=== PATIENT | male | born 1980 | race Caucasian/White ===

== ENCOUNTER 2021-07-12 09:26 | Inpatient (IN) | payer MEDICARE, MEDICAID, SELFPAY ==
[2021-07-12] VITALS (8 sets, daily range): BP systolic 121–147; BP diastolic 57–79; PULSE 76–95; RESP 16–20; TEMP 36.6–37.4; O2SAT 88–94; BMI 38.6; BMI 39.3
--- NOTE | ~2021-07-12 | CT_ITS ---
EXAMINATION: CT ANGIOGRAM OF THE CHEST WITH AND WITHOUT CONTRAST (CT PULMONARY ANGIOGRAM FOR PE) CLINICAL INFORMATION: Reason for Exam COVID +, hypoxia, sob, r/o pe COMPARISON: None TECHNIQUE: Prior to contrast administration, noncontrast localization images were obtained. Subsequently, multidetector volumetric imaging was performed from the thoracic inlet to below the diaphragms following the administration of 65 mL Omnipaque 350 intravenous contrast. No contrast reaction reported Sagittal, coronal, and MIP oblique sagittal reformatted images were obtained on the CT workstation, uploaded to PACS, and reviewed. This CT examination was performed using dose optimization techniques as appropriate, variously including the following: *Automated exposure control *Adjustment of mA and/or kV according to patient size (this includes techniques or standardized protocols for targeted exams where dose is matched to indication/reason for exam; i.e. extremities or head) *Use of iterative reconstruction technique Total exam dose-length product 519 mGy-cm FINDINGS: QUALITY OF STUDY/CONTRAST BOLUS: Satisfactory. PULMONARY ARTERIES: No central or segmental pulmonary emboli. THORACIC AORTA: No aneurysm or dissection. LUNG: The lung volumes are low. There is scattered areas of bilateral groundglass attenuation and increased interstitial markings seen throughout the lungs. This is a nonspecific appearance but would be compatible with Covid infection. PLEURA: No pleural effusion or pneumothorax. MEDIASTINUM: The heart is enlarged. No pericardial effusion. No hilar or mediastinal lymphadenopathy. No evidence of septal bowing or right heart strain. CHEST WALL/AXILLA: No axillary or internal mammary lymphadenopathy. OSSEOUS STRUCTURES: No acute or suspicious osseous abnormality. There are degenerative changes of the spine. UPPER ABDOMEN: Unremarkable. No reflux of contrast into the hepatic veins to suggest elevated right heart pressures. CT/CT angio chest PE protocol IMPRESSION: No evidence of pulmonary embolism. Bilateral infiltrates compatible with Covid infection. Enlarged heart. VTE: negative
--- NOTE | 2021-07-12 10:38 | ECG_ITS ---
Test Reason : DYSPNEA Blood Pressure : / mmHG Vent. Rate : 089 BPM Atrial Rate : 089 BPM P-R Int : 148 ms QRS Dur : 106 ms QT Int : 356 ms P-R-T Axes : 012 -16 024 degrees QTc Int : 433 ms Normal sinus rhythm Normal ECG No previous ECGs available Referred By: Kimmy Verduzco Electronically Signed By:JESI PIERRE
--- NOTE | 2021-07-12 10:47 | ED_ITS ---
HPI - SOB/Dyspnea General Chief Complaint: Dyspnea Stated Complaint: Cough fever Time Seen by Provider: 07/12/21 09:59 Source: patient Mode of arrival: ambulatory Limitations: no limitations History of Present Illness HPI Narrative: 40-year-old male with past medical history of HTN, obesity here from urgent care with complaints of cough, shortness of breath and fever up to 103 at home. Patient sought care in urgent care today and was noted to have oxygen saturations of 92-93% and was referred into the emergency department for further evaluation. Patient tells me that he started to have symptoms of COVID on July 03. Both of his family members at home are positive on July 06 he was tested and found out he was positive. He has been resting at home taking Motrin for fever. He tells me his fever does respond to Motrin but returns when the Motrin wears off. His last fever was this morning. He denies any chest pain or leg pain or swelling. The patient is not vaccinated for COVID Related Data Home Medications Medication Instructions Recorded Confirmed amlodipine 2.5 mg tablet 1 tab PO DAILY 07/12/21 clonazepam 0.5 mg tablet mg PO 07/12/21 lamotrigine 200 mg tablet 1 tab PO BID 07/12/21 paroxetine HCl 40 mg tablet 1 tab PO DAILY 07/12/21 Allergies Allergy/AdvReac Type Severity Reaction Status Date / Time No Known Allergies Allergy Verified 07/12/21 10:16 Review of Systems Review of Systems: Yes all other systems are reviewed and are negative Constitutional: Constitutional: Reports no additional constitutional complaints, Denies body ache(s), Denies chills, Reports fever(s), Denies headache(s) and Denies weakness Eyes: Eyes: Reports no additional eye complaints and Denies change in vision ENT: Reports system reviewed and no additional complaints, except as documented, Denies dizziness, Denies headache(s), Denies nasal congestion, Denies nasal discharge and Denies neck pain Cardiovascular: Cardiovascular: Reports no additional cardiovascular complaints, Denies chest pain, Denies leg edema and Reports dyspnea Respiratory: Respiratory: Reports no additional respiratory complaints, Reports cough and Reports dyspnea Gastrointestinal: Gastrointestinal: Reports no additional gastrointestinal complaints, Denies abdominal pain, Denies diarrhea, Denies nausea and Denies vomiting Musculoskeletal: Musculoskeletal: Reports no additional musculoskeletal complaints, Denies back pain, Denies arthralgias, Denies joint swelling, Denies neck pain, Denies numbness and Denies tingling Integumentary/Breasts: Skin/Breast: Reports system reviewed and no additional complaints, except as docu and Denies rash Neurologic: Reports system reviewed and no additional complaints, except as documented, Denies Abnormal speech present, Denies dizziness, Denies head ache(s), Denies numbness, Denies tingling and Denies weakness PMFSH Past Medical History Attestation statement: The following information was validated with the patient. Source: old records reviewed and nursing notes reviewed Medical History Anxiety HTN (hypertension) Tonsillectomy planned Social History Social History Alcohol intake: former Patient Tobacco Use Status: Former Tobacco user Use of substances other than those prescribed or required for medical reasons: No Advance Directives: No Advance Directives Information Provided: No Physical Exam Vital Signs: Vital Signs: Last Vital Signs Temp 99.4 F 07/12/21 14:04 Pulse 89 07/12/21 14:04 Resp 19 07/12/21 14:04 BP 139/79 07/12/21 14:04 Pulse Ox 92 07/12/21 14:04 Body Mass Index 38.6 Const: General: cooperative, healthy appearing, comfortable and no acute distress Orientation/consciousness: patient oriented x3 Limitations: no limitations HENMT: Head: Yes normal to inspection Ears: hearing grossly normal bi laterally General nose exam: Normal external nose present Face and sinus: Yes normal facial exam Mouth: Normal oral and palatal mucosa present Throat: Yes posterior oropharynx normal Eyes: General: appearance normal, both eyes and all related structures Pupils: Equal, round and reactive pupils present Neck: Neck: Yes normal visual inspection Chest: Chest palpation & inspection: normal inspection of the chest Resp: Other: Mild expiratory wheezing throughout Effort & Inspection: normal respiratory effort Cardio: Rate: regular rate Rhythm: regular rhythm Peripheral pulses: Peripheral pulses 2+ throughout GI: Inspection: Yes normal to inspection Palpation (GI): Soft to palpation and nontender Auscultation: normal bowel sounds Back/Spine/Pelvis: Thoracic/Lumbar Spine: thoracic and lumbar spine normal to inspection Skin: General skin exam: no rashes or lesions noted Neuro: General: patient oriented x3, no focal motor deficits and normal sensation to monofilament Cranial nerves: Yes Equal, round and reactive pupils present Cognition (Neuro): normal cognition Speech: No Abnormal speech present Gait exam (Neuro): Normal gait present Motor exam (neuro): 5/5 motor strength present throughout Extrem: General: Yes normal to inspection, Yes no pedal edema and Yes no calf tenderness Course Course Course Narrative: 40-year-old male known COVID positive here with complaints of continued fevers, cough, shortness of breath. Found to have oxygen saturation 92% at urgent care and referred into the emergency department today. On arrival the patient does have room air saturation 92%. He has mild tachypnea with talking. He has mild expiratory wheezing throughout. No calf pain or swelling. Will check labs, EKG, CTA. Will give decadron IV. Tachypnea, hypoxia from a viral infection. 1357-CT shows IMPRESSION: No evidence of pulmonary embolism. Bilateral infiltrates compatible with Covid infection. Enlarged heart. ? Labs are unremarkable. EKG shows no ischemic changes. Troponin is indeterminate at 7 but patient denies any chest pain with symptoms greater than 1 week less likely ACS. Will need ambulatory oxygen saturation prior to dispo 1410-patient ambulated in his room with oxygen saturations 88%. Will need ad mission. Call out to medicine to discuss 1420-Spoke to Dr Kaba who accepted admission. MDM - SOB/Dyspnea MDM Narrative Medical decision making narrative: PE, viral pneumonia Medical Records Attestation: I reviewed the patient's medical records. Lab Data Attestation: I reviewed the patient's lab results. Result diagrams: 07/12/21 11:22 07/12/21 11:22 Labs: Lab Results 07/12/21 07/12/21 07/12/21 Range/Units 11:22 11:22 11:22 WBC 10.4 (4.8-10.8) X10*3/uL RBC 5.21 (4.60-5.80) X10*6/uL Hgb 15.7 (14.0-18.0) g/dl Hct 43.4 (42-52) % MCV 83.3 (80-98) fL MCH 30.1 (27.0-33.0) pg MCHC 36.2 H (31.0-36.0) g/dl RDW 12.3 (11.0-16.0) % Plt Count 129 L (160-400) X10*3/uL MPV 9.8 (9.4-12.4) fL Immature Gran % (Auto) 0.6 H (0.0-0.4) % Neut % (Auto) 85.1 H (45-73) % Lymph % (Auto) 9.9 L (20-40) % [place] % (Auto) 4.3 (2-11) % Eos % (Auto) 0.0 (0-4) % Baso % (Auto) 0.1 (0-2) % Lymph # (Auto) 1.0 L (1.2-4.9) X10*3/uL [place] # (Auto) 0.5 (0.1-1.2) X10*3/uL Eos # (Auto) 0.0 (0.0-0.4) X10*3/uL Baso # (Auto) 0.0 (0.0-0.2) X10*3/uL Abs Immat Gran (auto) 0.06 H (0.00-0.03) X10*3/uL Absolute Neuts (auto) 8.8 H (2.0-8.3) X10*3/uL Absolute Nucleated RBC 0.000 (0.0-0.012) X10*3/uL Nucleated RBC % (auto) 0.0 (0.0-0.2) /100WBC Sodium 136 (135-145) mmol/L Potassium 3.6 (3.3-5.1) mmol/L Chloride 102 (96-108) mmol/L Carbon Dioxide 23 (22-29) mmol/L Anion Gap 15 (12-20) BUN 10 (9-16) mg/dL Creatinine 0.85 (0.5-1.4) mg/dL Estim Creat Clear Calc 163.7 Estimated GFR > 60 Random Glucose 121 H (60-115) mg/dL Lactic Acid 1.6 (0.5-2.0) mmol/L Calcium 7.9 L (8.4-10.2) mg/dL Magnesium 2.3 (1.6-2.6) mg/dL Ferritin (20-250) ng/mL Total Bilirubin 0.8 (0.0-1.0) mg/dL Direct Bilirubin 0.4 (0.0-0.5) mg/dL AST 39 H (5-37) U/L ALT 42 H (0-40) U/L Alkaline Phosphatase 42 (39-117) U/L Lactate Dehydrogenase 476 H (118-273) U/L Troponin I High Sens (<3.5-35.0) ng/L C-Reactive Protein 13.80 H (< or = 0.50) mg/dL Total Protein 6.3 L (6.5-8.0) g/dL Albumin 3.8 (3.5-5.0) g/dL Procalcitonin ng/mL COVID-19 (RUBA) (Negative) COVID-19 Clin Com 07/12/21 07/12/21 07/12/21 Range/Units 11:22 11:22 11:22 WBC (4.8-10.8) X10*3/uL RBC (4.60-5.80) X10*6/uL Hgb (14.0-18.0) g/dl Hct (42-52) % MCV (80-98) fL MCH (27.0-33.0) pg MCHC (31.0-36.0) g/dl RDW (11.0-16.0) % Plt Count (160-400) X10*3/uL MPV (9.4-12.4) fL Immature Gran % (Auto) (0.0-0.4) % Neut % (Auto) (45-73) % Lymph % (Auto) (20-40) % [place] % (Auto) (2-11) % Eos % (Auto) (0-4) % Baso % (Auto) (0-2) % Lymph # (Auto) (1.2-4.9) X10*3/uL [place] # (Auto) (0.1-1.2) X10*3/uL Eos # (Auto) (0.0-0.4) X10*3/uL Baso # (Auto) (0.0-0.2) X10*3/uL Abs Immat Gran (auto) (0.00-0.03) X10*3/uL Absolute Neuts (auto) (2.0-8.3) X10*3/uL Absolute Nucleated RBC (0.0-0.012) X10*3/uL Nucleated RBC % (auto) (0.0-0.2) /100WBC Sodium (135-145) mmol/L Potassium (3.3-5.1) mmol/L Chloride (96-108) mmol/L Carbon Dioxide (22-29) mmol/L Anion Gap (12-20) BUN (9-16) mg/dL Creatinine (0.5-1.4) mg/dL Estim Creat Clear Calc Estimated GFR Random Glucose (60-115) mg/dL Lactic Acid (0.5-2.0) mmol/L Calcium (8.4-10.2) mg/dL Magnesium (1.6-2.6) mg/dL Ferritin 1429 H (20-250) ng/mL Total Bilirubin (0.0-1.0) mg/dL Direct Bilirubin (0.0-0.5) mg/dL AST (5-37) U/L ALT (0-40) U/L Alkaline Phosphatase (39-117) U/L Lactate Dehydrogenase (118-273) U/L Troponin I High Sens 7.1 (<3.5-35.0) ng/L C-Reactive Protein (< or = 0.50) mg/dL Total Protein (6.5-8.0) g/dL Albumin (3.5-5.0) g/dL Procalcitonin 0.19 ng/mL COVID-19 (RUBA) (Negative) COVID-19 Clin Com 07/12/21 Range/Units 11:35 WBC (4.8-10.8) X10*3/uL RBC (4.60-5.80) X10*6/uL Hgb (14.0-18.0) g/dl Hct (42-52) % MCV (80-98) fL MCH (27.0-33.0) pg MCHC (31.0-36.0) g/dl RDW (11.0-16.0) % Plt Count (160-400) X10*3/uL MPV (9.4-12.4) fL Immature Gran % (Auto) (0.0-0.4) % Neut % (Auto) (45-73) % Lymph % (Auto) (20-40) % [place] % (Auto) (2-11) % Eos % (Auto) (0-4) % Baso % (Auto) (0-2) % Lymph # (Auto) (1.2-4.9) X10*3/uL [place] # (Auto) (0.1-1.2) X10*3/uL Eos # (Auto) (0.0-0.4) X10*3/uL Baso # (Auto) (0.0-0.2) X10*3/uL Abs Immat Gran (auto) (0.00-0.03) X10*3/uL Absolute Neuts (auto) (2.0-8.3) X10*3/uL Absolute Nucleated RBC (0.0-0.012) X10*3/uL Nucleated RBC % (auto) (0.0-0.2) /100WBC Sodium (135-145) mmol/L Potassium (3.3-5.1) mmol/L Chloride (96-108) mmol/L Carbon Dioxide (22-29) mmol/L Anion Gap (12-20) BUN (9-16) mg/dL Creatinine (0.5-1.4) mg/dL Estim Creat Clear Calc Estimated GFR Random Glucose (60-115) mg/dL Lactic Acid (0.5-2.0) mmol/L Calcium (8.4-10.2) mg/dL Magnesium (1.6-2.6) mg/dL Ferritin (20-250) ng/mL Total Bilirubin (0.0-1.0) mg/dL Direct Bilirubin (0.0-0.5) mg/dL AST (5-37) U/L ALT (0-40) U/L Alkaline Phosphatase (39-117) U/L Lactate Dehydrogenase (118-273) U/L Troponin I High Sens (<3.5-35.0) ng/L C-Reactive Protein (< or = 0.50) mg/dL Total Protein (6.5-8.0) g/dL Albumin (3.5-5.0) g/dL Procalcitonin ng/mL COVID-19 (RUBA) Negative (Negative) COVID-19 Clin Com See Note Imaging Data CT scan - chest: Attestation: I personally reviewed and interpreted this imaging study as follows: Radiologist's impression: FINDINGS: QUALITY OF STUDY/CONTRAST BOLUS: Satisfactory. PULMONARY ARTERIES: No central or segmental pulmonary emboli.? THORACIC AORTA: No aneurysm or dissection. LUNG: The lung volumes are low. There is scattered areas of bilateral groundglass attenuation and increased interstitial markings seen throughout the lungs. This is a nonspecific appearance but would be compatible with Covid infection. PLEURA: No pleural effusion or pneumothorax. MEDIASTINUM: The heart is enlarged. No pericardial effusion.? No hilar or mediastinal lymphadenopathy.? No evidence of septal bowing or right heart strain. CHEST WALL/AXILLA: No axillary or internal mammary lymphadenopathy. OSSEOUS STRUCTURES: No acute or suspicious osseous abnormality. There are degenerative changes of the spine. UPPER ABDOMEN: Unremarkable.? No reflux of contrast into the hepatic veins to suggest elevated right heart pressures. CT/CT angio chest PE protocol IMPRESSION: No evidence of pulmonary embolism. Bilateral infiltrates compatible with Covid infection. Enlarged heart. ? VTE: negative ECG Data Attestation: I personally reviewed and interpreted this ECG as follows: ECG interpretation date: 07/12/21 ECG interpretation time: 11:08 Interpretation: Normal sinus rhythm with rate 89, normal TX, normal QRS, normal QT the Discharge Plan Discharge Clinical Impression: COVID-19, Pneumonia, viral, Hypoxia Patient Disposition: Admitted As Inpatient Prescriptions: No Action lamotrigine 200 mg tablet 1 tab PO BID RF: 0 clonazepam 0.5 mg tablet PO RF: 0 amlodipine 2.5 mg tablet 1 tab PO DAILY RF: 0 paroxetine HCl 40 mg tablet 1 tab PO DAILY RF: 0
[2021-07-12] MEDS: Albuterol Sulfate 90 MCG 8 GM INHALER 2 PUFF INHALE (11:11)
[2021-07-12] MEDS: 0.9 % Sodium Chloride 1,000 ML 999 ML IV (11:29)
[2021-07-12] MEDS: dexAMETHasone sod phosphate 4 MG/ML VIAL 6 MG IVPUSH (11:29)
[2021-07-12 11:30] LABS: MANUAL DIFF FLAG NO
--- NOTE | 2021-07-12 11:31 | PC.NURSE ---
iv inserted, labs drawn, ekg performed, covid swab obtained, pt medicated per order, will continue to monitor.
[2021-07-12 11:32] LABS: Basophils Percent Auto 0.1 % (0-2); Hematocrit 43.4 % (42-52); Hemoglobin 15.7 g/dl (14.0-18.0); Imm Gran Abs Auto 0.06 X10*3/uL (0.00-0.03); Imm Gran Pct Auto 0.6 % (0.0-0.4); Lymphocytes Percent Auto 9.9 % (20-40); Mean Corpuscular HGB Conc 36.2 g/dl (31.0-36.0); Mean Corpuscular Hemoglobin 30.1 pg (27.0-33.0); Mean Corpuscular Volume 83.3 fL (80-98); Mean Platelet Volume 9.8 fL (9.4-12.4); Monocytes Absolute Auto 0.5 X10*3/uL (0.1-1.2); Monocytes Percent Auto 4.3 % (2-11); Neutrophils Absolute Auto 8.8 X10*3/uL (2.0-8.3); Neutrophils Percent Auto 85.1 % (45-73); Platelet Count 129 X10*3/uL (160-400); Red Blood Count 5.21 X10*6/uL (4.60-5.80); Red Cell Distribution Width 12.3 % (11.0-16.0); White Blood Count 10.4 X10*3/uL (4.8-10.8)
[2021-07-12 11:41] LABS: Lactic Acid 1.6 mmol/L (0.5-2.0)
[2021-07-12 11:48] LABS: Alanine Aminotransferase 42 U/L (0-40); Albumin Level 3.8 g/dL (3.5-5.0); Alkaline Phosphatase 42 U/L (39-117); Anion Gap 15 (12-20); Aspartate Amino Transferase 39 U/L (5-37); Bilirubin Direct 0.4 mg/dL (0.0-0.5); Bilirubin Total 0.8 mg/dL (0.0-1.0); Blood Urea Nitrogen 10 mg/dL (9-16); Calcium 7.9 mg/dL (8.4-10.2); Carbon Dioxide 23 mmol/L (22-29); Chloride 102 mmol/L (96-108); Creatinine Clr Calc Pharmacy 163.7; Estimated Glomerular Filt Rate > 60; Glucose Random 121 mg/dL (60-115); Lactate Dehydrogenase 476 U/L (118-273); Magnesium 2.3 mg/dL (1.6-2.6); Potassium 3.6 mmol/L (3.3-5.1); Sodium 136 mmol/L (135-145); Total Protein 6.3 g/dL (6.5-8.0)
[2021-07-12 11:56] LABS: COVID-19 Test Negative (Negative); IDNOW Serial# 9DD0AD1C
[2021-07-12 12:08] LABS: Ferritin 1429 ng/mL (20-250)
[2021-07-12 12:22] LABS: Procalcitonin 0.19 ng/mL
--- NOTE | 2021-07-12 12:33 | PC.NURSE ---
pt returned from radiology
[2021-07-12] MEDS: iohexoL 350 MG/ML 100 ML INFUS..BTL 65 ML IV (12:39)
[2021-07-12 13:37] LABS: Troponin-I High Sensitivity 7.1 ng/L (<3.5-35.0)
--- NOTE | 2021-07-12 14:48 | P.HPHOSP_ITS ---
History of Present Illness Date of Service: 07/12/21 Chief Complaint: sob 40M presented with fevers and sob. patient has been ill since 07/03/2021, diagnosed with covid 07/04/2021. patient has multiple family members also with covid. patient is unvaccinated. he has been having daily fevers, myalgias, lethargy. his symptoms have been worsening, now with shortness of breath for past 2 days so he decided to come to ED. in ED found to be hypoxic on room air 88% on ambulation. significantly elevated inflammatory markers. CT chest showed bilateral opacities consistent with viral pneumonia and cardiomegaly. Review of Systems Review of Systems: Constitutional: fever, chills Eyes: denies blurry vision ENT: denies sore throat CVS: denies chest pain Respiratory: dyspnea GI: no abdominal pain : denies dysuria MSK: denies neck pain Skin: denies rash Neuro: denies specific motor weakness Psych: denies suicidal ideation Endocrine: denies heat/cold intolerance Hematologic: denies easy bleeding Allergy: denies hives [facility] Medical History Anxiety Bipolar 1 disorder HTN (hypertension) Obesity (BMI 30-39.9) Family History Father Pertinent family history: mother - alive, healthy grandmother- CAD, Surgical History Hx of tonsillectomy Social History Alcohol intake: former Patient Tobacco Use Status: Former Tobacco user Use of substances other than those prescribed or required for medical reasons: No Advance Directives: No Advance Directives Information Provided: No Meds Allergies Allergy/AdvReac Type Severity Reaction Status Date / Time No Known Allergies Allergy Verified 07/12/21 10:16 Active Medications: Current Medications Amlodipine Besylate (Amlodipine Besylate 2.5 Mg Tablet) 2.5 mg PO DAILY MICHAEL; Protocol Clonazepam (Clonazepam 0.5 Mg Tablet) 0.5 mg PO BEDTIME MICHAEL Dexamethasone Sodium Phosphate (Dexamethasone Sod Phosphate 4 Mg/Ml Vial) 6 mg IVPUSH DAILY MICHAEL Fenofibrate (Fenofibrate 160 Mg Tablet) 160 mg PO DAILY [facility] Pharmacy Consult (Consult Rx Perform Med Rec) 1 each MISCELLANE ONCE PRN PRN Reason: Consult order Home Medications Medication Instructions Recorded Confirmed Last Taken Type amlodipine 2.5 mg tablet 1 tab PO DAILY 07/12/21 Unknown History clonazepam 0.5 mg tablet 1 mg PO BEDTIME 07/12/21 07/12/21 Unknown History clonazepam 0.5 mg tablet mg PO 07/12/21 Unknown History ibuprofen 600 mg tablet 600 mg PO Q8H PRN 07/12/21 07/12/21 07/12/21 History Physical Exam Vital Signs and Narrative: Vital Signs: Last Vital Signs Temp 99.4 F 07/12/21 14:04 Pulse 89 07/12/21 14:04 Resp 19 07/12/21 14:04 BP 139/79 07/12/21 14:04 Pulse Ox 92 07/12/21 14:04 Body Mass Index 38.6 General: ill appearing, diaphoretic HEENT: atraumatic Neck: normal to visual inspection CVS: S1, S2, RRR Resp: Crackles bilateral Chest: non tender GI: soft, non tender, non distended : no CVA tenderness Skin: no rashes Extremities: no edema Neuro: Oriented X3, grossly intact Psych: cooperative Results Labs CBC and Chem 7: 07/12/21 11:22 07/12/21 11:22 Labs: Laboratory Results - last 24 hr 07/12/21 07/12/21 07/12/21 11:22 11:22 11:22 MCV 83.3 MCH 30.1 MCHC 36.2 H RDW 12.3 Plt Count 129 L MPV 9.8 Immature Gran % (Auto) 0.6 H Neut % (Auto) 85.1 H Lymph % (Auto) 9.9 L Long % (Auto) 4.3 Eos % (Auto) 0.0 Baso % (Auto) 0.1 Lymph # (Auto) 1.0 L Long # (Auto) 0.5 Eos # (Auto) 0.0 Baso # (Auto) 0.0 Abs Immat Gran (auto) 0.06 H Absolute Neuts (auto) 8.8 H Absolute Nucleated RBC 0.000 Nucleated RBC % (auto) 0.0 Anion Gap 15 Estim Creat Clear Calc 163.7 Estimated GFR > 60 Random Glucose 121 H Lactic Acid 1.6 Calcium 7.9 L Magnesium 2.3 Ferritin Total Bilirubin 0.8 Direct Bilirubin 0.4 AST 39 H ALT 42 H Alkaline Phosphatase 42 Lactate Dehydrogenase 476 H Troponin I High Sens C-Reactive Protein 13.80 H Total Protein 6.3 L Albumin 3.8 Procalcitonin COVID-19 (RUBA) COVID-19 Clin Com 07/12/21 07/12/21 07/12/21 11:22 11:22 11:22 MCV MCH MCHC RDW Plt Count MPV Immature Gran % (Auto) Neut % (Auto) Lymph % (Auto) Long % (Auto) Eos % (Auto) Baso % (Auto) Lymph # (Auto) Long # (Auto) Eos # (Auto) Baso # (Auto) Abs Immat Gran (auto) Absolute Neuts (auto) Absolute Nucleated RBC Nucleated RBC % (auto) Anion Gap Estim Creat Clear Calc Estimated GFR Random Glucose Lactic Acid Calcium Magnesium Ferritin 1429 H Total Bilirubin Direct Bilirubin AST ALT Alkaline Phosphatase Lactate Dehydrogenase Troponin I High Sens 7.1 C-Reactive Protein Total Protein Albumin Procalcitonin 0.19 COVID-19 (RUBA) COVID-19 Clin Com 07/12/21 11:35 MCV MCH MCHC RDW Plt Count MPV Immature Gran % (Auto) Neut % (Auto) Lymph % (Auto) Long % (Auto) Eos % (Auto) Baso % (Auto) Lymph # (Auto) Long # (Auto) Eos # (Auto) Baso # (Auto) Abs Immat Gran (auto) Absolute Neuts (auto) Absolute Nucleated RBC Nucleated RBC % (auto) Anion Gap Estim Creat Clear Calc Estimated GFR Random Glucose Lactic Acid Calcium Magnesium Ferritin Total Bilirubin Direct Bilirubin AST ALT Alkaline Phosphatase Lactate Dehydrogenase Troponin I High Sens C-Reactive Protein Total Protein Albumin Procalcitonin COVID-19 (RUBA) Negative COVID-19 Clin Com See Note Imaging Radiologist's Impressions: Impressions Chest CTA 07/12/21 10:38 IMPRESSION: No evidence of pulmonary embolism. Bilateral infiltrates compatible with Covid infection. Enlarged heart. VTE: negative Assessment and Plan (1) Acute respiratory failure with hypoxia: Status: Acute (2) COVID-19: Status: Acute (3) HTN (hypertension): Status: Acute (4) Obesity (BMI 30-39.9): Status: Acute 40M with known covid presented with sob acute hypoxic respiratory failure due to covid 19 pneumonia high risk for further decompensation due to obesity and HTN and elevated inf lammatory markers monitor closely, wean o2 as tolerated iv decadron 6mg daily discussed possible benefit of fenofibrate based on physiology and some small trials (https://[email or web address]/article/rs-730727/v1), patient interested in using off-label, will start fenobirate 165mg daily. obesity weight loss encouraged htn amlodipine anxiety klonipin history of bipolar reports being stable, no longer on lamictal dvt prophylaxis - xarelto Quality Stroke Does the patient have a stroke diagnosis?: No VTE Prior VTE?: No VTE Risk Level:: Medical - moderate - high VTE Device Contraindication: Treatment Not Indicated VTE Drug Contraindication: N/A - Med Ordered
--- NOTE | 2021-07-12 15:04 | PHA.MEDREC ---
Pharmacy Consult ? Medication Reconciliation Pharmacy has completed the medication reconciliation. Reports that his medication for bipolar are currently change. He reports no longer taking lamotrigine or paroxetine. Francheska Martin, IlyaD
--- NOTE | 2021-07-12 15:34 | PC.NURSE ---
pharmacy called for missing med
--- NOTE | 2021-07-12 15:56 | PC.NURSE ---
patient a&ox3, pt requesting food, will get him some based upon diet order, vss, will continue to monitor.
[2021-07-12] MEDS: Fenofibrate 160 MG TABLET PO (17:33)
[2021-07-12] MEDS: 0.9 % Sodium Chloride Flush 3 ML SYRINGE IVFLUSH ×2 (17:33→20:54)
--- NOTE | 2021-07-12 17:35 | PC.NURSE ---
patient medicated per order
--- NOTE | 2021-07-12 19:10 | PC.NURSE ---
called floor to give report, floor will call us back
--- NOTE | 2021-07-12 20:15 | PC.NURSE ---
attempted to call report a second time, unable to give report, sherin texted the nurse. charge states to print summary report and bring patient to floor, will do so and tell munitions worker this is being done.
[2021-07-12] MEDS: clonazePAM 0.5 MG TABLET PO (20:54)
[2021-07-13] VITALS (9 sets, daily range): BP systolic 125–154; BP diastolic 52–82; PULSE 72–82; RESP 16–20; TEMP 36.4–37.2; O2SAT 88–98; BMI 38.8
[2021-07-13] MEDS: guaiFENesin DM 100/10/5 ML 5 ML SYRUP PO (02:57)
[2021-07-13 07:09] LABS: Hematocrit 41.5 % (42-52); Hemoglobin 14.5 g/dl (14.0-18.0); Mean Corpuscular HGB Conc 34.9 g/dl (31.0-36.0); Mean Corpuscular Hemoglobin 29.8 pg (27.0-33.0); Mean Corpuscular Volume 85.4 fL (80-98); Mean Platelet Volume 10.3 fL (9.4-12.4); Platelet Count 158 X10*3/uL (160-400); Red Blood Count 4.86 X10*6/uL (4.60-5.80); Red Cell Distribution Width 12.5 % (11.0-16.0); White Blood Count 9.6 X10*3/uL (4.8-10.8)
[2021-07-13 07:45] LABS: Alanine Aminotransferase 69 U/L (0-40); Albumin Level 3.5 g/dL (3.5-5.0); Alkaline Phosphatase 41 U/L (39-117); Anion Gap 15 (12-20); Aspartate Amino Transferase 55 U/L (5-37); Bilirubin Direct 0.3 mg/dL (0.0-0.5); Bilirubin Total 0.6 mg/dL (0.0-1.0); Blood Urea Nitrogen 11 mg/dL (9-16); C Reactive Protein 14.29 mg/dL (< or = 0.50); Calcium 8.2 mg/dL (8.4-10.2); Carbon Dioxide 25 mmol/L (22-29); Chloride 101 mmol/L (96-108); Creatinine Clr Calc Pharmacy 169.2; Estimated Glomerular Filt Rate > 60; Glucose Fasting 134 mg/dL (60-99); Potassium 3.9 mmol/L (3.3-5.1); Sodium 137 mmol/L (135-145)
[2021-07-13] MEDS: Fenofibrate 160 MG TABLET PO (07:53)
[2021-07-13] MEDS: amLODIPine Besylate 2.5 MG TABLET PO (07:53)
[2021-07-13] MEDS: dexAMETHasone sod phosphate 4 MG/ML VIAL 6 MG IVPUSH (07:54)
[2021-07-13] MEDS: Rivaroxaban 10 MG TABLET PO (07:54)
[2021-07-13] MEDS: 0.9 % Sodium Chloride Flush 3 ML SYRINGE IVFLUSH ×3 (07:54→19:29)
--- NOTE | 2021-07-13 12:50 | P.PNIM_ITS ---
Subjective Subjective Date of Service: 07/13/21 Interval History: cc: sob interval history: improved from yesterday Cardiovascular Cardiovascular: Reports no additional cardiovascular complaints Respiratory Respiratory: Reports no additional respiratory complaints Physical Exam Vital Signs: Vital Signs: Last Vital Signs Temp 97.7 F 07/13/21 11:22 Pulse 74 07/13/21 11:22 Resp 20 07/13/21 11:22 BP 127/57 L 07/13/21 11:22 Pulse Ox 91 L 07/13/21 11:22 Body Mass Index 38.8 General: lethargic oriented times 3, no acute distress Resp: Crackles bilateral, no accessory muscles used CVS: S1,S2,RRR GI: soft, non tender, non distended Neuro: motor grossly intact, alert Psych: appropriate affect, appropriate insight Objective Data Active Medications Acetaminophen (Acetaminophen 325 Mg Tablet) 650 mg PO Q6H PRN PRN Reason: Pain, Mild (Pain Scale 1-3) Amlodipine Besylate (Amlodipine Besylate 2.5 Mg Tablet) 2.5 mg PO DAILY [facility]; Protocol Last Admin: 07/13/21 07:53 Dose: 2.5 mg Documented by: MAX Clonazepam (Clonazepam 0.5 Mg Tablet) 0.5 mg PO BID@0900,1200 PRN PRN Reason: Anxiety Clonazepam (Clonazepam 1 Mg Tablet) 1 mg PO BEDTIME [facility] Dexamethasone Sodium Phosphate (Dexamethasone Sod Phosphate 4 Mg/Ml Vial) 6 mg IVPUSH DAILY [facility] Last Admin: 07/13/21 07:54 Dose: 6 mg Documented by: MAX Fenofibrate (Fenofibrate 160 Mg Tablet) 160 mg PO DAILY [facility] Last Admin: 07/13/21 07:53 Dose: 160 mg Documented by: MAX Pharmacy Consult (Consult Rx Perform Med Rec) 1 each MISCELLANE ONCE PRN PRN Reason: Consult order Rivaroxaban (Rivaroxaban 10 Mg Tablet) 10 mg PO DAILY [facility] Last Admin: 07/13/21 07:54 Dose: 10 mg Documented by: MAX Sodium Chloride (0.9 % Sodium Chloride Flush 3 Ml Syringe) 3 ml IVFLUSH QSHIFT [facility] Last Admin: 07/13/21 07:54 Dose: 3 ml Documented by: MAX Labs CBC & Chem 7: 07/13/21 06:47 07/13/21 06:47 Labs: Laboratory Results - last 24 hr 07/12/21 07/13/21 07/13/21 11:22 06:47 06:47 MCV 85.4 MCH 29.8 MCHC 34.9 RDW 12.5 Plt Count 158 L MPV 10.3 Absolute Nucleated RBC 0.000 Nucleated RBC % (auto) 0.0 Anion Gap 15 Estim Creat Clear Calc 169.2 Estimated GFR > 60 Fasting Glucose 134 H Calcium 8.2 L Total Bilirubin 0.6 Direct Bilirubin 0.3 AST 55 H ALT 69 H Alkaline Phosphatase 41 Troponin I High Sens 7.1 C-Reactive Protein 14.29 H Total Protein 6.0 L Albumin 3.5 Assessment and Plan (1) COVID-19: Status: Acute (2) Acute respiratory failure with hypoxia: Status: Acute (3) HTN (hypertension): Status: Acute (4) Obesity (BMI 30-39.9): Status: Acute Assessment and Plan: ? 40M with known covid presented with sob acute hypoxic respiratory failure due to covid 19 pneumonia continues to be high risk for further decompensation due to obesity and HTN and elevated inflammatory markers he reports some subjective improvement today, but CRP is slightly higher today, and saturation only 91% on room air at rest, and quickly desaturates to <90% on minimal exertion monitor closely iv decadron 6mg daily, day 2 obesity weight loss encouraged htn amlodipine anxiety nicolasonipin history of bipolar reports being stable, no longer on lamictal dvt prophylaxis - xarelto Quality Stroke Does the patient have a stroke diagnosis?: No VTE Prior VTE?: No VTE Risk Level:: Medical - moderate - high VTE Device Contraindication: Treatment Not Indicated VTE Drug Contraindication: N/A - Med Ordered
--- NOTE | 2021-07-13 15:00 | CA_ITS ---
Transthoracic Echocardiogram Patient (Last, First, Middle): Abad Serrato, Gender: Male Date of : 1980 Age: 40 Procedure Date: 07/13/2021 Procedure Type: Transthoracic Echocardiogram Location: [facility] Height: 182.88 cm Weight: 129.73 kg BSA: 2.48 m2 Heart Rate: bpm BP: 127 / 57 mmHg Management Instructor: MANI Referring MD: Ray Kaba MD Symptoms: cardiomegaly Study Quality: Fair ECG Rhythm: Sinus Conclusions: - The left ventricular systolic function is normal. The calculated ejection fraction is 56% by biplane method. - No obvious valvular pathology seen on this study. Findings Left Ventricle Normal left ventricular cavity size. There is mildly increased left ventricular wall thickness. The left ventricular systolic function is normal. The calculated ejection fraction is 56% by biplane method. There is no evidence of regional wall motion abnormalities. Diastolic function is normal for age. Right Ventricle Normal right ventricular cavity size and systolic function. Atria Both atria are normal in size. Aortic Valve There is a normal trileaflet aortic valve. There is no aortic valve stenosis. There is no aortic valve regurgitation. Mitral Valve The mitral valve appears normal. There is no mitral valve regurgitation. There is no mitral valve stenosis. Pulmonic Valve The pulmonic valve was not well visualized. Tricuspid Valve Normal tricuspid valve structure. There is trace tricuspid valve regurgitation. The pulmonary artery systolic pressure is normal. Great Vessels The aortic annulus, sinuses of valsalva, and asc aorta are normal in size. Venous The inferior vena cava is normal in size. Pericardium/Pleural There is no evidence of pericardial effusion. Prior Study Comparison No prior study available for comparison. Recommendations, Care & Conclusions No obvious valvular pathology seen on this study. Measurements 2D Linear Measurements IVSd: 1.08 0.6-0.9/0.6-1.0 cm LVIDd: 5.64 3.9-5.3/4.2-5.9 cm LVIDd Index: 2.27 2.4-3.2/2.2-3.1 cm/m2 LVIDs: 3.55 2.0-3.6 cm LVPWd: 1.19 0.7-1.1 cm Ao Root: 3.60 2.1-3.5 cm LA Diam: 4.70 2.7-3.8/3.0-4.0 cm LAIDs Index: 1.90 1.5-2.3 cm/m2 LV Mass: 328.13 67-162/88-224 g LV Mass Index: 132.31 43-95/49-115 g/m2 LVOT Diam: 2.40 3.0+(-)1.3 cm 2D Systolic Function EF 4C: 56.60 >55% EF 2C: 55.60 >55% EF BiP: 56.00 >55% Mitral Valve MV Pk E: 0.63 MV PK A: 0.46 MV Decel Time: 230.00 E/A: 1.40 E'Lateral: 14.60 E'Medial: 9.36 E/E' Med: 6.80 E/E' Lat: 4.30 PHT: 67.00 MVA PHT: 3.28 Decel [place]: 2.75 Aortic Valve AoV Pk Dm: 1.31 AoV Mn Dm: 0.90 AoV VTI: 0.24 AoV Pk Grad: 7.00 Aov Mn Grad: 4.00 BURKE Cont.VTI: 3.99 LVOT LVOT Pk Dm: 1.04 LVOT Mn Dm: 0.74 LVOT VTI: 0.21 LVOT Pk Grad: 4.00 LVOT Mn Grad: 2.00 LVOT Diam: 2.40 LVOT Area: 4.52 Diastolic Function MV Pk E: 0.63 MV Pk A: 0.46 E/A: 1.40 E'Medial: 9.36 E/E' Med: 6.80 E' Laterial: 14.60 E/E' Lat: 4.30 Right Ventricle TAPSE (mm): 2.65 TVS' Dm: 15.30 Tricuspid Valve TR Pk Dm: 2.17 TR Pk Grad: 19.00 RA Press: 3.00 RVSP: 22.00 Great Vessels Aorta Ao Root-2D: 3.60 2.0-3.7 cm Ao Asc: 3.30 2.1-3.4 cm Ao Arch: 2.80 Updated in Other Vendor System with Status of Final Rolando Jackson MD electronically signed on 07/13/2021 4:02:51 PM with status of Final
[2021-07-13] MEDS: clonazePAM 1 MG TABLET PO (19:29)
[2021-07-14 04:00] VITALS: BP 123/61; PULSE 70; RESP 20; TEMP 37.2; O2SAT 91
[2021-07-14 07:31] LABS: Hematocrit 41.8 % (42-52); Hemoglobin 14.4 g/dl (14.0-18.0); Mean Corpuscular HGB Conc 34.4 g/dl (31.0-36.0); Mean Corpuscular Hemoglobin 29.4 pg (27.0-33.0); Mean Corpuscular Volume 85.3 fL (80-98); Mean Platelet Volume 10.7 fL (9.4-12.4); Platelet Count 193 X10*3/uL (160-400); Red Cell Distribution Width 12.9 % (11.0-16.0); White Blood Count 9.8 X10*3/uL (4.8-10.8)
[2021-07-14 07:49] LABS: Anion Gap 16 (12-20); Blood Urea Nitrogen 16 mg/dL (9-16); C Reactive Protein 7.99 mg/dL (< or = 0.50); Calcium 8.2 mg/dL (8.4-10.2); Carbon Dioxide 25 mmol/L (22-29); Chloride 104 mmol/L (96-108); Creatinine Clr Calc Pharmacy 178.8; Estimated Glomerular Filt Rate > 60; Glucose Fasting 122 mg/dL (60-99); Sodium 141 mmol/L (135-145)
[2021-07-14 08:00] VITALS: BP 124/54; PULSE 65; RESP 22; TEMP 36.2; O2SAT 93
[2021-07-14 09:52] VITALS: BP 124/54; PULSE 65
[2021-07-14] MEDS: Fenofibrate 160 MG TABLET PO (09:52)
[2021-07-14] MEDS: 0.9 % Sodium Chloride Flush 3 ML SYRINGE IVFLUSH (09:52)
[2021-07-14] MEDS: Rivaroxaban 10 MG TABLET PO (09:52)
[2021-07-14] MEDS: amLODIPine Besylate 2.5 MG TABLET PO (09:52)
[2021-07-14] MEDS: dexAMETHasone sod phosphate 4 MG/ML VIAL 6 MG IVPUSH (09:52)
--- NOTE | 2021-07-14 11:41 | P.DS_ITS ---
DS: Providers Provider Date of Service: 07/14/21 Date of admission: 07/12/21 14:46 Primary care physician: Siddhartha Conroy MD DS: Diagnosis Discharge Diagnosis (1) COVID-19: Status: Acute (2) Acute respiratory failure with hypoxia: Status: Acute (3) HTN (hypertension): Status: Acute (4) Obesity (BMI 30-39.9): Status: Acute DS: Summary Hospital Course Hospital Course: From initial H&P Chief Complaint: sob 40M presented with fevers and sob. patient has been ill since 07/03/2021, diagnosed with covid 07/04/2021. patient has multiple family members also with covid. patient is unvaccinated. he has been having daily fevers, myalgias, lethargy. his symptoms have been worsening, now with shortness of breath for past 2 days so he decided to come to ED. in ED found to be hypoxic on room air 88% on ambulation. significantly elevated inflammatory markers. CT chest showed bilateral opacities consistent with viral pneumonia and cardiomegaly. Hospital course: Patient was admitted for acute hypoxic respiratory failure secondary to COVID-19 pneumonia. He was monitor closely due to his high risk for decompensation from obesity and hypertension. There is also concern due to his elevated inflammatory markers with a CRP of 14. He was given IV Decadron and weaned off oxygen. His inflammatory markers decreased to 7.99 at time of discharge. Winnie ent is now ambulating on room air with minimal shortness of breath. Overall is feeling much better. On admission CTA showed incidental finding of cardiomegaly. Echocardiogram was done which was unremarkable. Patient will be discharged home to complete course of p.o. Decadron. He will complete 20 day total of isolation starting from time of onset of symptoms. Time Spent with Patient Time attestation: Total time spent providing and/or coordinating discharge services: Discharge coordination time: Greater than 30 minutes Quality: Stroke Does the patient have a stroke diagnosis?: No Physical Exam Vital Signs: Vital Signs: Last Vital Signs Temp 97.2 F 07/14/21 08:00 Pulse 65 07/14/21 09:52 Resp 22 H 07/14/21 08:00 BP 124/54 L 07/14/21 09:52 Pulse Ox 93 07/14/21 08:00 Body Mass Index 38.8 General: lethargic oriented times 3, no acute distress Resp:? Crackles bilateral, no accessory muscles used CVS: S1,S2,RRR GI: soft, non tender, non distended Neuro:? motor grossly intact, alert Psych: appropriate affect, appropriate insight? DS: Data Data Completed and Pending Labs on day of discharge: Laboratory Results - last 24 hr 07/14/21 07/14/21 06:28 06:28 WBC 9.8 RBC 4.90 Hgb 14.4 Hct 41.8 L MCV 85.3 MCH 29.4 MCHC 34.4 RDW 12.9 Plt Count 193 MPV 10.7 Absolute Nucleated RBC 0.000 Nucleated RBC % (auto) 0.0 Sodium 141 Potassium 4.0 Chloride 104 Carbon Dioxide 25 Anion Gap 16 BUN 16 Creatinine 0.78 Estim Creat Clear Calc 178.8 Estimated GFR > 60 Fasting Glucose 122 H Calcium 8.2 L C-Reactive Protein 7.99 H Preliminary micro results at discharge 07/12/21 11:35 Blood Culture - Preliminary Blood - Venous No growth after 24 hours. 07/12/21 11:22 Blood Culture - Preliminary Blood - Venous No growth after 24 hours. Discharge Plan Discharge Patient Disposition: Home, Self-Care Discharge Diagnosis: covid Referrals: Name,MD Siddhartha [Primary Care Provider] - 1 Week Discharge Medications: New fenofibrate 160 mg Tablet 160 mg PO DAILY Qty: 7 RF: 0 dexamethasone [Decadron] 6 mg tablet 6 mg PO DAILY Qty: 7 RF: 0 Continued clonazepam 0.5 mg tablet 0.5 mg PO BID@0900,1200 PRN (Reason: Anxiety) RF: 0 amlodipine 2.5 mg tablet 2.5 mg PO DAILY RF: 0 clonazepam 0.5 mg tablet 1 mg PO BEDTIME RF: 0 ibuprofen 600 mg Tablet 600 mg PO Q8H PRN (Reason: Fever) RF: 0 Discharge Orders: Discharge Order (Routine); Ordered 07/14/21 Ordered By: Ray Kaba Diet: advance to usual diet Activity on Discharge: As tolerated Stand Alone Forms: Patient Portal Discharge page Care Plan Goals: recovery Health Concerns: covid Plan of Treatment: continue meds as prescribed, if sob worsens or oxygen drops below 90 persistently would return to ED, continue isolation until 20 days from start of symptoms Assessment: see above
[2021-07-14 11:47] VITALS: BP 127/62; PULSE 64; RESP 20; TEMP 36.3; O2SAT 91
--- NOTE | 2021-07-14 11:53 | MHC.CM.PN ---
IMM 06/3021 Male 40 DX Covid lives w family. He is independent. DP Discharge today home with Family transport.
== END 2021-07-14 13:37 | disposition home or self-care (01) | DRG 177 ==
LOC: HO.ED 14:23 → HO.EDOVER 14:55 → HO.IMC 18:13
PROVIDERS: Nurse Practitioner Family; Admitting Provider Internal Medicine; Emergency Provider Emergency Medicine Emergency Medical Services; PCP Internal Medicine Geriatric Medicine; Visit Provider Internal Medicine
DX: U07.1 COVID-19 (principal); J12.82 Pneumonia due to coronavirus disease 2019; J96.01 Acute respiratory failure with hypoxia; F41.9 Anxiety disorder, unspecified; I10 Essential (primary) hypertension; E66.9 Obesity, unspecified; Z68.38 Body mass index [BMI] 38.0-38.9, adult; Z20.822 Contact with and (suspected) exposure to COVID-19; Z87.891 Personal history of nicotine dependence; Z79.1 Long term (current) use of non-steroidal anti-inflammatories (NSAID); Z79.899 Other long term (current) drug therapy
CPT/HCPCS: 36415; 71275; 80048; 80076; 82728; 83605; 83615; 83735; 84145; 84484; 85025; 85027; 86140; 87040; 87635; 93005; 93306; 94640; 99285; J1100; Q9967

== ENCOUNTER 2024-06-22 12:35 | Outpatient (REF) | payer MEDICARE, MEDICAID, SELFPAY ==
[2024-06-23 14:39] LABS: CT PCR NOT DETECTED (Not Detect.); NG PCR NOT DETECTED (Not Detect.)
== END 2024-06-22 12:36 | disposition home or self-care (01) ==
LOC: HO.HHCLNP 12:35
PROVIDERS: Visit Provider Nurse Practitioner Family
DX: Z00.00 Encounter for general adult medical examination without abnormal findings (principal)
CPT/HCPCS: 87491; 87591

== ENCOUNTER 2024-06-24 09:01 | Outpatient (REF) | payer MEDICARE, MEDICAID, SELFPAY ==
[2024-06-24 14:42] LABS: Alanine Aminotransferase 29 U/L (0-40); Albumin Level 4.1 g/dL (3.5-5.0); Alkaline Phosphatase 45 U/L (39-117); Anion Gap 10 (12-20); Aspartate Amino Transferase 18 U/L (5-37); Bilirubin Total 0.6 mg/dL (0.0-1.0); Blood Urea Nitrogen 13 mg/dL (9-16); Calcium 8.9 mg/dL (8.4-10.2); Carbon Dioxide 26 mmol/L (22-29); Chloride 109 mmol/L (96-108); Cholesterol 148 mg/dL (<200); Estimated Glomerular Filt Rate > 60; Glucose Random 85 mg/dL (60-115); HDL Cholesterol 44 mg/dL (>40); LDL Cholesterol Calculated 95 mg/dL (<100); Potassium 3.9 mmol/L (3.3-5.1); Sodium 141 mmol/L (135-145); Total Protein 6.2 g/dL (6.5-8.0); Triglycerides 47 mg/dL (<150)
[2024-06-25 05:00] LABS: HIV AB/AG Nonreactive (Nonreactive); HIV Num 1 0.05 S/CO (0.00-0.99); ~HepC Num1 0.09 S/CO (0.00-0.79); ~Hepatitis C Antibody Nonreactive (Nonreactive)
== END 2024-06-24 09:02 | disposition home or self-care (01) ==
LOC: HO.CHCLDS 09:01
PROVIDERS: Visit Provider Nurse Practitioner Family
DX: Z00.00 Encounter for general adult medical examination without abnormal findings (principal); I10 Essential (primary) hypertension; E66.9 Obesity, unspecified
CPT/HCPCS: 36415; 80053; 80061; 86803; 87389

== ENCOUNTER 2024-12-24 09:17 | Outpatient (REF) | payer MEDICARE, MEDICAID, SELFPAY ==
--- OUTSIDE RECORDS SUMMARY | 2024-12-24 10:48 | XMS_ITS | Encounter Summary ---
Author Organization [employer] Address [address] [place] [address] [address] [place] [address] Care Team Providers Care Group Rooms Coordinator Name Role Phone Name, Siddhartha LOWERY Primary Care Provider [phone] Reason for Visit * Reason Onset Date Comments Lab Orders 12/22/2024 Encounter Details Date Type Department Care Team ([facility] st Contact Info) Description 12/22/2024 Telephone [facility] MEDICINE [address] [place], [place] [phone] Name, MD Siddhartha [address] [place], [place] [phone] Lab Orders Social History Tobacco Use Types Packs/Day Years Used Date Smoking Tobacco: Never Alcohol Use Standard Drinks/Week Comments Not Currently 0 (1 standard drink = 0.6 oz pur e alcohol) Sex and Gender Information Value Date Recorded Sex Assigned at Male 08/13/2022 10:29 AM EDT Legal Sex Male 10:29 AM EDT Gender Identity Male 08/13/2022 10:29 AM EDT Sexual Orientation Straight 08/13/2022 10 :29 AM EDT documented as of this encounter Miscellaneous Notes * Telephone Encounter - Leigha Ferrell RN - 12/23/2024 2:00 PM EDT TC placed to pt to inform of below PCP message. Pt verbalized understanding of PCP message and denies questions or concerns at this time. Siddhartha Conroy MD: I have ordered the test for the patient. He should do the testing any morning. Testare electronic orders and he can do them and [facility] lab * Telephone Encounter - Siddhartha Conroy MD - 12/23/2024 1:50 PM EDT I have ordered the test for the patient. He should do the testing any morning. Test are electronic orders and he can do them and [facility] of any [facility] lab * Telephone Encounter - Hi Kuhn - 12/22/2024 10:21 AM EDT TC from pt states seen his therapist who is recommending him to get a full panel of labs done including testosterone. During his last visit with therapist he reported having low energy level and depression. Please send order to [facility] labs documented in this encounter Plan of Treatment Scheduled Orders Name Type Priority Associated Diagnoses Orde r Schedule CBC auto differential Lab Routine Lack of energy Expected: 12/23/2024 (Approximate), Expires: 12/23/2025 Comprehensive Metabolic Panel Lab Routine Lack of energy Expected: 12/23/2024 (Approximate), Expires: 12/23/2025 TSH W/Reflex to FT4 Lab Routine Lack of energy Expected: 12/23/2024 (Approximate), Expires: 12/23/2025 Testosterone, Total, males (Adult), IA Lab Routine Lack of energy Expected: 12/23/2024, Expires: 12/23/2025 documented as of this encounter Visit Diagnoses Diagnosis Lack of energy- Primary Other malaise and fatigue documented in this encounter Care Teams Group Rooms Coordinator Relationship Specialty Start Date End Date Name, MD Siddhartha [address] [place] [address] PCP - General Family Medicine 08/14/21 documented as of this encounter
--- OUTSIDE RECORDS SUMMARY | 2024-12-24 10:48 | XMS_ITS | Encounter Summary ---
Author Organization [employer] Address [address] [place] [address] [address] [place] [address] Care Team Providers Care Chair Mechanic Name Role Phone Name, Siddhartha LOWERY Primary Care Provider [phone] Reason for Visit * Reason Comments Med Refill Encounter Details Date Type Department Care Team ([facility] st Contact Info) Description 12/23/2024 Refill [facility] MEDICINE [address] [place], [place] [phone] Verna Poole NP [address] [place] [address] Hypertension, unspecified type Social History Tobacco Use Types Packs/Day Years [...] AM EDT documented as of this encounter Plan of Treatment Not on file documented as of this encounter Visit Diagnoses Diagnosis Hypertension, unspecified type documented in this encounter Care Teams Chair Mechanic Relationship Specialty Start Date End Date Name, MD Siddhartha [address] [place] [address] PCP - General Family Medicine 08/14/21 documented as of this encounter
--- OUTSIDE RECORDS SUMMARY | 2024-12-24 10:48 | XMS_ITS | Encounter Summary ---
Author Organization [employer] Address [address] [place] [address] [address] [place] [address] Care Team Providers Care Yard Spotter Name Role Phone Name, Siddhartha LOWERY Primary Care Provider [phone] Encounter Details Date Type Department Care Team (Latest Contact Info) Description 04/17/[address] [facility] CONVERSIONS Dental, Provider, DDS Social History Tobacco Use Types Packs/Day Years Used Date Smoking Tobacco: Never Assessed Sex and Gender Information Value Date Recorded Sex Assigned at Male 08/13/2022 10:29 AM EDT Legal Sex Male 10:29 AM EDT Gender Identity Male 08/13/2022 10:29 AM EDT Sexual Orientation Straight 08/13/2022 10 :29 AM EDT documented as of this encounter Plan of Treatment Not on file documented as of this encounter Visit Diagnoses Not on filedocumented in this encounter Care Teams Yard Spotter Relationship Specialty Start Date End Date Name, MD Siddhartha [address] [place] [address] PCP - General Family Medicine 08/14/21 documented as of this encounter
--- OUTSIDE RECORDS SUMMARY | 2024-12-24 10:48 | XMS_ITS | Encounter Summary ---
Author Organization [employer] [facility] Address [address] [place] [address] [address] [place] [address] Care Team Providers Care Stamp Machine Servicer Name Role Phone Name, Siddhartha LOWERY Primary Care Provider [phone] Reason for Visit * Reason Comments Med Refill Encounter Details Date Type Department Care Team ([facility] st Contact Info) Description 03/21/2024 Refill [facility] MEDICINE [address] [place], [place] [phone] Name, MD Siddhartha [address] [place] [address] Hypertension, unspecified type Social History Tobacco Use [...] type documented in this encounter Care Teams Stamp Machine Servicer Relationship Specialty Start Date End Date Name, MD Siddhartha [address] [place], [place] [phone] PCP - General Family Medicine 08/14/21 documented as of this encounter
--- OUTSIDE RECORDS SUMMARY | 2024-12-24 10:48 | XMS_ITS | Clinical Summary ---
Author Organization [employer] Address [address] [place] [address] Care Team Providers Care Whale Fisherman Name Role Phone Name, Siddhartha LOWERY Primary Care Provider [phone] Allergies No known active allergies Medications lamoTRIgine (LaMICtal) 200 MG tablet Take 1 tablet by mouth 2 times daily. 2 Active perphenazine 2 MG tablet Take 2 mg by mouth if needed in the morning, at noon, and at bedtime. 2 Active PARoxetine (Paxil) 40 MG tablet TAKE 1 TABLET BY MOUTH AT BEDTIME TAKE WITH 10MG TAB FOR TDD 50MG 2 Active clonazePAM (KlonoPIN) 0.5 MG tablet TAKE 1 TABLET IN THE MORNING, 1 TABLET IN THE AFTERNOON NEEDED AND TAKE 2 TABLETS AT BEDTIME 2 Active amLODIPine (Norvasc) 2.5 MG tabletIndication s:Hypertension, unspecified type Take 1 tablet (2.5 mg) by mouth in the morning. 90 tablet 3 5 11/11/19 26 Active Active Problems Problem Noted Date Diagnosed Date Obesity 06/22/2024 Assessment & Plan (06/24/2024 3:46 PM EDT): Actively losing weight with lifestyle measures Continue Healthcare maintenance 06/22/2024 Assessment & Plan (06/24/2024 3:47 PM EDT): Routine labs as ordered below Elevated blood pressure reading 06/19/2024 Hypertensive disorder 06/19/2024 Assessment & Plan (06/24/2024 3:46 PM EDT): At goal, continue current regimen Anxiety disorder 04/03/2016 Bipolar I disorder 04/03/2016 Resolved Problems Problem Noted Date Diagnosed Date Resolved Date Exposure to communicable disease 06/22/2024 11/16/2024 Assessment & Plan (06/24/2024 3:46 PM EDT): Sti screening offered and ordered Pneumonia due to COVID-19 virus 06/19/2024 11/16/2024 Encounters Date Type Department Care Team Description 12/23/2024 Refill [facility] [address] [place] [address] [phone] Verna Poole NP Hypertension, unspecified type 12/22/2024 Telephone [facility] [address] [place] [address] [phone] Siddhartha Conroy MD Lab Orders 11/16/2024 10:15 AM EST Office Visit [facility] [address] [place] [phone] Siddhartha Conroy MD Hypertension, unspecified type (Primary Dx); Situational stress; 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 34.9 in adult from Last 3 Months Immunizations Name Administration Dates Next Due Pfizer Covid-19 Vaccine 12+ 09/04/2021, Tdap 11/16/2024 Social History Tobacco Use Types Packs/Day Years [...] Orientation Straight 08/13/2022 10 :29 AM EDT Last Filed Vital Signs Vital Sign Reading Time Taken Comments Blood Pressure 151/79 11/16/2024 10:11 AM EST Pulse 51 11/16/2024 10:11 AM EST Temperature 36.3 ??C (97.4 ??F) 11/16/2024 10:[address] Respiratory Rate 18 11/16/2024 10:11 AM EST Oxygen Saturation 97% 11/16/2024 10:11 AM EST Inhaled Oxygen Concentration - - Weight 120 kg (265 lb 9.6 oz) 11/16/2024 10:11 A M EST Height 182.9 cm (6') 11/16/2024 10:11 AM EST Body Mass Index 36.02 11/16/2024 10:11 AM EST Plan of Treatment Health Maintenance Due Date Last Done Comments Depression Screening 1982 SDOH Screening 1982 Family Planning (PISQ) 1997 Hepatitis B Vaccines (1 of 3 - 19+ 3-dose series) 2001 COVID-19 Vaccine (2023-2 5 season) 2024 09/04/2021, 08/14/2021 Influenza Vaccine (#1) 2024 Alcohol/Substance Use Screening 11/16/2025 11/16/2024 Tobacco Screening 11/16/2025 11/16/2024 Lipid Panel 06/24/2029 06/24/2024, 10/18/2022, 05/22/2021 Zoster Vaccines (1 of 2) 2032 DTaP/Tdap/Td Vaccines (2 - T d or Tdap) 11/16/2034 11/16/2024 RSV Patients and Patients Aged 60 years or older (1 - 1-dose 75+ series) 2057 HIV Screening Completed 06/24/2024 Hepatitis C Screening Completed 06/24/2024 HIB Vaccines Aged Out No longer eligi ble based on patient's age to complete this topic HPV Vaccines Aged Out No longer eligi ble based on patient's age to complete this topic Hepatitis A Vaccines Aged Out No long er eligible based on patient's age to complete this topic IPV Vaccines Aged Out No longer eligi ble based on patient's age to complete this topic Meningococcal Vaccine Aged Out No jerome omar eligible based on patient's age to complete this topic Pneumococcal Vaccine: Pediatrics (0 to 5 Years) and At-Risk Patients (6 to 49) Years) Aged Out No longer eligible b ased on patient's age to complete this topic RSV under 20 months Aged Out No longe r eligible based on patient's age to complete this topic Rotavirus Vaccines Aged Out No longer eligible based on patient's age to complete this topic Procedures Procedure Name Priority Date/Time Associated Diagnosis Comments LIPID PANEL, STANDARD Routine 06/24/2024 9:05 AM EDT Hypertension, unspecified type Obesity, unspecified classification, unspecified obesity type, unspecified whether serious comorbidity present Healthcare maintenance HEPATITIS C AB W/REFL TO HCV RNA, QN, PCR Routine 06/24/2024 9:03 AM EDT Healthcare maintenance HIV 1/2 ANTIGEN/ANTIBODY, FOURTH GENERATION W/RFL Routine 06/24/2024 9:03 AM EDT Healthcare maintenance from Last 3 Months or Most Recently Relevant to Health Maintenance Results * Lipid Panel, Standard (06/24/2024 9:05 AM EDT) Triglycerides 47 <150 mg/dL [facility] Comment:Desirable Triglyceri de: less than 150 mg/dLBorderline High Triglyceride 150-199 mg/dLHigh Triglyceride: 200-499 mg/dLVery High Triglyceride: greater than or equal to 5OO mg/dL Cholesterol 148 <200 mg/dL [facility] Comment:Desirable Cholestero l: less than 200 mg/dLBorderline High Cholesterol: 200-239 mg/dLHigh Cholesterol: greater than 239 mg/dL LDL Cholesterol Calculated 95 <100 mg/dL [facility] Comment:Desirable LDL: less than 100 mg/dLNear Optimal/Above Optimal LDL: 110- 129 mg/dLBorderline High LDL: 130-159 mg/dLHigh LDL: 160-189 mg/dLVery High LDL: greater than or equal to 190 mg/dL HDL Cholesterol 44 >40 mg/dL [facility] Comment:Desirable HDL: great er than 40 mg/dL Note: This HDL assay may give artificially low results in patients with liver disease. Blood Venous blood specimen / Unknown 06/24/2024 9:05 AM EDT 06/24/2024 1:46 PM EDT us Verna Poole NP LAB BLOOD ORDERABLES Final Resul t [facility] [address] [place] [phone] * Hepatitis C Antibody with Reflex to HCV, RNA, Quantitative, Real-Time PCR (06/24/2024 9:03 AM EDT) Hepatitis C Antibody Nonreactive Nonreactive [facility] Comment:Antibodies to HCV no t detected; does not exclude early acuteHCV infection. Blood Venous blood specimen / Unknown 06/24/2024 9:03 AM EDT 06/24/2024 1:46 PM EDT us Verna Poole NP LAB BLOOD ORDERABLES Final Resul t Performing Organization Address [facility] de Phone Number [facility] [address] [place] [phone] * HIV-1/2 Antigen and Antibodies, Fourth Generation, with Reflexes (06/24/2024 9:03 AM EDT) Pathologist [facility] HIV AB/AG Nonreactive Nonreactive [facility] Comment:HIV-1 p24 Ag and/or HIV-1/HIV-2 Ab not detected.A test result that is nonreactive does not exclude thepossibility of exposure to or infection with HIV-1 and/orHIV-2. Nonreactive results in this assay for individualswith prior exposure to HIV-1 and/or HIV-2 may be due toantigen and antibody levels that are below the limit ofdetection of this assay.The Dsg.nrnity HIV Ag/Ab Combo assay result andsupplemental assay results should be interpreted inconjunction with the patient's clinical presentation,history and other laboratory results. If the results areinconsistent with clinical evidence, additional testing issuggested to confirm the result. Blood Venous blood specimen / Unknown 06/24/2024 9:03 AM EDT 06/24/2024 1:46 PM EDT us Verna Poole NP LAB BLOOD ORDERABLES Final Resul t Performing Organization Address [facility] Co de Phone Number [facility] [address] [place] [phone] from Last 3 Months or Most Recently Relevant to Health Maintenance Insurance MEDICARE [facility] STANDARD Care Teams Whale Fisherman Relationship Specialty Start Date End Date Name, MD Siddhartha [address] [place] [address] PCP - General Family Medicine 08/14/21
[2024-12-24 14:21] LABS: MANUAL DIFF FLAG NO
[2024-12-24 14:32] LABS: Basophils Absolute Auto 0.1 X10*3/uL (0.0-0.2); Eosinophils Absolute Auto 0.2 X10*3/uL (0.0-0.4); Eosinophils Percent Auto 3.1 % (0-4); Hemoglobin 16.3 g/dl (14.0-18.0); Imm Gran Abs Auto 0.03 X10*3/uL (0.00-0.03); Imm Gran Pct Auto 0.5 % (0.0-0.4); Lymphocytes Absolute Auto 2.6 X10*3/uL (1.2-4.9); Lymphocytes Percent Auto 41.7 % (20-40); Mean Corpuscular HGB Conc 33.3 g/dl (31.0-36.0); Mean Corpuscular Volume 90.2 fL (80.0-98.0); Mean Platelet Volume 10.5 fL (9.4-12.4); Monocytes Absolute Auto 0.4 X10*3/uL (0.1-1.2); Neutrophils Absolute Auto 2.9 x10*3/uL (2.0-8.3); Neutrophils Percent Auto 46.7 % (45-73); Platelet Count 194 X10*3/uL (160-400); Red Blood Count 5.43 X10*6/uL (4.60-5.80); Red Cell Distribution Width 12.5 % (11.0-16.0); White Blood Count 6.1 X10*3/uL (4.8-10.8)
[2024-12-24 14:58] LABS: Alanine Aminotransferase 29 U/L (0-40); Alkaline Phosphatase 57 U/L (39-117); Anion Gap 11 (12-20); Aspartate Amino Transferase 25 U/L (5-37); Bilirubin Total 0.5 mg/dL (0.0-1.0); Blood Urea Nitrogen 17 mg/dL (9-16); Carbon Dioxide 27 mmol/L (22-29); Chloride 106 mmol/L (96-108); Estimated Glomerular Filt Rate > 60; Glucose Random 101 mg/dL (60-115); Potassium 4.4 mmol/L (3.3-5.1); Sodium 140 mmol/L (135-145)
[2024-12-24 15:18] LABS: TSH reflex Free T4 1.23 uIU/mL (0.32-4.0)
[2024-12-31 14:12] LABS: Testosterone, Total 315 ng/dL (250-1100)
== END 2024-12-24 09:18 | disposition home or self-care (01) ==
LOC: HO.CHCLDS 09:17
PROVIDERS: Visit Provider Internal Medicine Geriatric Medicine
DX: R53.83 Other fatigue (principal)
CPT/HCPCS: 36415; 80053; 84403; 84443; 85025